=== PATIENT | female | born 1940 | race Caucasian/White ===

== ENCOUNTER 2017-05-14 08:44 | Emergency (ER) | payer MEDICARE, MEDICAID ==
[2017-05-14 08:52] VITALS: BP 120/52
--- NOTE | 2017-05-14 10:02 | ER Document Report ---
HPI - HPI Patient complains to provider of: implanted port accessed flushed and deaccessed Onset: Other - flush due not able to get to primary md today Pain Level: Denies Context: Patient was seen 2 day to access and de-access report on the left chest. Patient has the Port-A-Cath due to lung cancer and following up several spots. She does not take chemo at this time but she is being monitored for several spots that could develop. 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 Associated Symptoms: None Exacerbated by: Denies Relieved by: Denies Similar symptoms previously: Yes Recently seen / treated by doctor: Yes - ROS ROS below otherwise negative: Yes - CONSTITUTIONAL Constitutional: DENIES: Fever, Chills - EENT EENT: DENIES: Sore Throat, Ear Pain, Nasal Drainage-Clear, Nasal Drainage- Purulent, Congestion, Eye problems - NEURO Neurology: DENIES: Headache, Weakness, Vision blurred, Dizzinesss / Vertigo - CARDIOVASCULAR Cardiovascular: DENIES: Chest pain - RESPIRATORY Respiratory: DENIES: Trouble Breathing, Coughing - GASTROINTESTINAL Gastrointestinal: DENIES: Abdominal Pain, Nausea, Patient vomiting, Diarrhea, Constipation, Black / Bloody Stools - URINARY Urinary: DENIES: Dysuria, Urgency, Frequency - REPRODUCTIVE Reproductive: DENIES: :, Postmenopausal, Abnormal bleeding / discharge - MUSCULOSKELETAL Musculoskeletal: DENIES: Extremity pain, Back Pain, Neck Pain, Swelling - DERM Skin Color: Normal Skin Problems: None Past Medical History - General Information source: Patient - Social History Smoking Status: Former Smoker Cigarette use (# per day): No Chew tobacco use (# tins/day): No Smoking Education Provided: No Frequency of alcohol use: None Drug Abuse: None Lives with: Family - She lives with her and stepson Family History: Reviewed & Not Pertinent Patient has suicidal ideation: No Patient has homicidal ideation: No - Past Medical History Cardiac Medical History: Reports: Hx Hypertension Pulmonary Medical History: Reports: None EENT Medical History: Reports: None Neurological Medical History: Reports: None Endocrine Medical History: Reports: None Renal/ Medical History: Reports: None. Denies: Hx Peritoneal Dialysis Malignancy Medical History: Reports: Hx Lung Cancer, Hx Skin Cancer GI Medical History: Reports: None Musculoskeltal Medical History: Reports None Skin Medical History: Reports None Psychiatric Medical History: Reports: Hx Obsessive Compulsive Disorder Traumatic Medical History: Reports: None Infectious Medical History: Reports: None Past Surgical History: Reports: Other - Removal of squamous cell from arm removal of left lung Port-A-Cath insertio Vertical Provider Document - CONSTITUTIONAL Agree With Documented VS: Yes Exam Limitations: No Limitations General Appearance: WD/WN - INFECTION CONTROL TRAVEL OUTSIDE OF THE [place] IN LAST 30 DAYS: No - HEENT HEENT: Atraumatic, Normal ENT Exam, Normocephalic, PERRLA - NECK Neck: Normal Inspection, Supple - RESPIRATORY Respiratory: Other - No left long right lung clear O2 Sat by Pulse Oximetry: 98 - CARDIOVASCULAR Cardiovascular: Regular Rate, Regular Rhythm - GI/ABDOMEN Gastrointestinal: Abdomen Soft, Abdomen Non-Tender, No Organomegaly, Normal Bowel Sounds - MUSCULOSKELETAL/EXTREMETIES Musculoskeletal/Extremeties: MAEW, FROM, Non-Tender, No Edema - NEURO Level of Consciousness: Awake, Alert, Appropriate Motor/Sensory: No Motor Deficit - DERM Integumentary: Warm, Dry, No Rash Course - Re-evaluation Re-evalutation: 05/14/17 10:10 Port-A-Cath flushed as per protocol then DXS patient given instructions on care of Port-A-Cath. - Vital Signs Vital signs: Temp Pulse Resp BP Pulse Ox 97.6 F 64 16 120/52 L 98 05/14/17 08:51 05/14/17 08:51 05/14/17 08:51 05/14/17 08:51 05/14/17 08:51 Discharge - Discharge Clinical Impression: port-a-cath flush Condition: Stable Disposition: HOME, SELF-CARE Instructions: Family Physicians / Practices Additional Instructions: You were seen today for care of your Port-A-Cath. Your cath was accessed and flushed heparinized and de-accessed under sterile condition. Please keep this area clean and dry until the skin heals over. Please return to the ED or your primary doctor for any signs or symptoms of infection. FOLLOW-UP CARE: If you have been referred to a physician for follow-up care, call the physician s office for an appointment as you were instructed or within the next two days. If you experience worsening or a significant change in your symptoms, notify the physician immediately or return to the Emergency Department at any time for re-evaluation.
== END 2017-05-14 10:08 | disposition home or self-care (01) ==
LOC: ER 08:44
DX: Z45.2 Encounter for adjustment and management of vascular access device (principal); Z85.118 Personal history of other malignant neoplasm of bronchus and lung; Z85.828 Personal history of other malignant neoplasm of skin; Z87.891 Personal history of nicotine dependence; I10 Essential (primary) hypertension
CPT/HCPCS: 99283; J1642

== ENCOUNTER 2020-05-03 09:36 | Emergency (ER) | payer MEDICARE, MEDICAID ==
--- NOTE | 2020-05-03 10:25 | ER Document Report ---
ED Medical Screen (RME) - General Chief Complaint: Shortness Of Breath Stated Complaint: SHORT OF BREATH Time Seen by Provider: 05/03/20 10:19 Primary Care Provider: GENO SHAHID MD [Primary Care Provider] - Follow up as needed Mode of Arrival: Wheelchair Information source: Patient, Relative Notes: HPI; 80-year-old female past medical history significant for lung cancer with a left lobectomy currently on chemotherapy presents emergency room with sudden onset of shortness of breath on awakening this morning worse with exertion. Denies any chest pain. Denies any recent travel. No history of DVTs or PEs. PE: Alert and oriented x3. Lungs were clear to auscultation without rales, rhonchi, wheezes. Heart: Regular rate rhythm without murmurs, rubs, gallops. I have greeted and performed a rapid initial assessment of this patient. A comprehensive ED assessment and evaluation of the patient, analysis of test results and completion of the medical decision making process will be conducted by additional ED providers. I have specifically instructed the patient or family members with the patient to immediately return to any nursing staff should anything change in the patient's condition or with their chief complaint. TRAVEL OUTSIDE OF THE [place] IN LAST 30 DAYS: No - Related Data Allergies/Adverse Reactions: amlodipine [From [employer]] Allergy (Verified 05/14/17 08:49) duloxetine Allergy (Verified 05/03/20 10:19) Past Medical History - Past Medical History Cardiac Medical History: Reports: Hx Hypertension Renal/ Medical History: Denies: Hx Peritoneal Dialysis Malignancy Medical History: Reports: Hx Lung Cancer, Hx Skin Cancer Psychiatric Medical History: Reports: Hx Obsessive Compulsive Disorder Past Surgical History: Reports: Other - Removal of squamous cell from arm removal of left lung Port-A-Cath insertio Physical Exam - Vital signs Vitals: Temp Pulse Resp BP Pulse Ox 98.4 F 93 20 135/96 H 97 05/03/20 09:55 05/03/20 09:55 05/03/20 09:55 05/03/20 09:55 05/03/20 09:55 Course - Vital Signs Vital signs: Temp Pulse Resp BP Pulse Ox 98.4 F 93 20 135/96 H 97 05/03/20 09:55 05/03/20 09:55 05/03/20 09:55 05/03/20 09:55 05/03/20 09:55 Doctor's Discharge - Discharge Referrals: GENO SHAHID MD [Primary Care Provider] - Follow up as needed
--- NOTE | 2020-05-03 11:17 | RADIOLOGY REPORT (SQ) ---
EXAM DESCRIPTION: CHEST SINGLE VIEW IMAGES COMPLETED DATE/TIME: 05/03/2020 10:52 am REASON FOR STUDY: dyspnea COMPARISON: None. EXAM PARAMETERS: NUMBER OF VIEWS: One view. TECHNIQUE: An AP view of the chest was obtained. RADIATION DOSE: NA LIMITATIONS: None. FINDINGS: LUNGS AND PLEURA: Abrupt truncation of the left main bronchus, surgical clips that project above the left hilum, and opacification of the left hemithorax associated with ipsilateral mediastin al shift. There is right apical pleuroparenchymal thickening. There is no consolidation or pleural effusion on the right. MEDIASTINUM AND HILAR STRUCTURES: As above. HEART AND VASCULAR STRUCTURES: The cardiac silhouette is obscured. BONES: Subacute fracture of the proximal left humerus. HARDWARE: None in the chest. OTHER: No other finding. IMPRESSION: Abrupt truncation of the left main bronchus, surgical clips that project above the left hilum, and opacification of the left hemithorax associated with ipsilateral mediastinal shift. Does the patient have a history of prior left pneumonectomy? Otherwise these findings could represent an obstruction of the left main bronchus associated with lobar collapse and pleural fluid. TECHNICAL DOCUMENTATION: JOB ID: [id number] 2010 [employer]- All Rights Reserved Reading location - IP/workstation name: [email or web address]
[2020-05-03 12:21] LABS: HEMATOCRIT 29.7 % (36.0-47.0); HEMOGLOBIN 9.8 g/dL (12.0-15.5); MEAN CORPUSCULAR HEMOGLOBIN 28.5 pg (27.0-33.4); MEAN CORPUSCULAR HGB CONC 33.1 g/dL (32.0-36.0); MEAN CORPUSCULAR VOLUME 86 fl (80-97); PLATELET COUNT 133 10^3/uL (150-450); RED BLOOD COUNT 3.44 10^6/uL (3.72-5.28); RED CELL DISTRIBUTION WIDTH 21.9 % (11.5-14.0); WHITE BLOOD COUNT 2.9 10^3/uL (4.0-10.5)
[2020-05-03 12:23] LABS: APPEARANCE,URINE SLIGHTLY-CLOUDY; BILIRUBIN,URINE NEGATIVE (NEGATIVE); COLOR,URINE YELLOW; GLUCOSE, URINE NEGATIVE (NEGATIVE); KETONES,URINE NEGATIVE (NEGATIVE); LEUKOCYTE ESTERASE,URINE TRACE (NEGATIVE); NITRITE,URINE NEGATIVE (NEGATIVE); PROTEIN,URINE 100 mg/dL (NEGATIVE); URINE SPECIFIC GRAVITY 1.025; UROBILINOGEN,URINE NEGATIVE mg/dL (<2.0)
[2020-05-03 12:36] LABS: ALBUMIN 3.6 g/dL (3.5-5.0); ALKALINE PHOSPHATASE 59 U/L (38-126); ANION GAP 9 (5-19); ASPARTATE AMINO TRANSFERASE 15 U/L (14-36); BILIRUBIN,DIRECT 0.2 mg/dL (0.0-0.4); BILIRUBIN,TOTAL 0.5 mg/dL (0.2-1.3); BLOOD UREA NITROGEN 25 mg/dL (7-20); CALCIUM 7.4 mg/dL (8.4-10.2); CARBON DIOXIDE 19 mmol/L (22-30); CHLORIDE 111 mmol/L (98-107); GLUCOSE 96 mg/dL (75-110); POTASSIUM 5.2 mmol/L (3.6-5.0); TOTAL PROTEIN 6.5 g/dL (6.3-8.2)
[2020-05-03 12:47] LABS: ABSOLUTE LYMPHOCYTES# (MANUAL) 1.5 10^3/uL (0.5-4.7); ABSOLUTE MONOCYTES # (MANUAL) 0.1 10^3/uL (0.1-1.4); BASOPHILS % (MANUAL) 0 % (0-2); EOSINOPHILS % (MANUAL) 0 % (0-6); LYMPHOCYTES % (MANUAL) 49 % (13-45); MONOCYTES % (MANUAL) 5 % (3-13); SEGMENTED NEUTROPHILS % (MAN) 43 % (42-78); TOTAL CELLS COUNTED 100
[2020-05-03 12:48] LABS: ANISOCYTOSIS 3+; OVALOCYTES 1+; POIKILOCYTOSIS 1+
[2020-05-03 12:49] LABS: PLATELET CLUMPS PRESENT; PLATELET COMMENT DECREASED; POLYCHROMASIA SLIGHT; TEAR DROP CELLS SLIGHT
[2020-05-03 12:50] LABS: PROMYELOCYTES % (MANUAL) 1 % (0)
[2020-05-03] MEDS ORDERED: NORMAL SALINE 1000 ML 1,000 ML IV ONE (15:34)
--- NOTE | 2020-05-03 15:57 | ER Document Report ---
Entered by ANGELA RAMOS SCRIBE 05/03/20 1519 Acting as scribe for:OFELIA SERRA MD ED General - General Mode of Arrival: Wheelchair Information source: Patient, Relative TRAVEL OUTSIDE OF THE [place] IN LAST 30 DAYS: No <OFELIA SERRA - Last Filed: 05/03/20 16:43> <KACIE PATTON - Last Filed: 05/03/20 19:13> - General Chief Complaint: Shortness Of Breath Stated Complaint: SHORT OF BREATH Time Seen by Provider: 05/03/20 10:19 Primary Care Provider: GEON SHAHID MD [Primary Care Provider] - Follow up as needed Notes: This 80 year old female patient with a history of lung cancer s/p left lobectomy in 2016, currently receiving chemotherapy presents to the ED today with complaints of waking up short of breath this morning. Patient states that she felt like she couldn't get a breath in and would become extremely short of breath with exertion; she denies shortness of breath at rest. at bedside reports that the patient was supposed to go to chemotherapy today, but was too short of breath, so they cancelled the appointment. They spoke with the [facility] oncologist, Dr. Montes, and was advised to come to the ED for evaluation. She is not dependent on home O2. Denies fever, chills, cough, chest pain, abdominal pain, nausea, or vomiting. Denies history of PE. mentions that the patient had diarrhea last week due to one of her chemotherapy medications changing. No diarrhea at this time. (OFELIA SERRA) - Related Data Allergies/Adverse Reactions: amlodipine [From [facility]] Allergy (Verified 05/14/17 08:49) duloxetine Allergy (Verified 05/03/20 10:19) Past Medical History - General Information source: Patient, Relative - Social History Smoking Status: Never Smoker Cigarette use (# per day): No Chew tobacco use (# tins/day): No Smoking Education Provided: No Lives with: Spouse/Significant other Family History: Reviewed & Not Pertinent Patient has suicidal ideation: No Patient has homicidal ideation: No - Past Medical History Cardiac Medical History: Reports: Hx Hypertension Malignancy Medical History: Reports: Hx Lung Cancer - s/p left lobectomy in 2016, Hx Skin Cancer Psychiatric Medical History: Reports: Hx Obsessive Compulsive Disorder Past Surgical History: Reports: Other - Removal of squamous cell from arm removal of left lung Port-A-Cath insertio <OFELIA SERRA - Last Filed: 05/03/20 16:43> Review of Systems - Review of Systems Constitutional: See HPI. denies: Chills, Fever EENT: No symptoms reported Cardiovascular: See HPI. denies: Chest pain Respiratory: See HPI, Short of breath. denies: Cough, Sputum Gastrointestinal: See HPI, Diarrhea. denies: Abdominal pain, Nausea, Vomiting Genitourinary: No symptoms reported Female Genitourinary: No symptoms reported Musculoskeletal: No symptoms reported Skin: No symptoms reported Hematologic/Lymphatic: No symptoms reported Neurological/Psychological: No symptoms reported -: Yes All other systems reviewed and negative <OFELIA SERRA - Last Filed: 05/03/20 16:43> Physical Exam - Vital signs Interpretation: Normal - General General appearance: Alert In distress: None - HEENT Head: Normocephalic, Atraumatic Eyes: Normal Pupils: PERRL - Respiratory Respiratory status: No respiratory distress, Other - Patient has O2 sats of 99- 100% on RA at rest Chest status: Nontender Breath sounds: Decreased air movement - Diminished breath sounds on the left due to left lobectomy, Other - Breath sounds in the right lung are clear to auscultation Chest palpation: Normal - Cardiovascular Rhythm: Regular Heart sounds: Normal auscultation Murmur: No Friction rub: No Gallop: None auscultated - Abdominal Inspection: Normal Distension: No distension Bowel sounds: Normal Tenderness: Nontender - Abdomen soft Organomegaly: No organomegaly - Back Back: Normal, Nontender - Extremities General upper extremity: Normal inspection General lower extremity: Normal inspection. No: Edema - Neurological Neuro grossly intact: Yes Cognition: Normal Orientation: AAOx4 Luis Coma Scale Eye Opening: Spontaneous Luis Coma Scale Verbal: Oriented Russell Coma Scale Motor: Obeys Commands Luis Coma Scale Total: 15 Speech: Normal Motor strength normal: LUE, RUE, LLE, RLE Sensory: Normal - Psychological Associated symptoms: Normal affect, Normal mood - Skin Skin Temperature: Warm Skin Moisture: Dry Skin Color: Pale <SERRAOFELIA ALCANTARA Jeffery - Last Filed: 05/03/20 16:43> - Vital signs Vitals: Temp Pulse Resp BP Pulse Ox 98.4 F 93 20 135/96 H 97 05/03/20 09:55 05/03/20 09:55 05/03/20 09:55 05/03/20 09:55 05/03/20 09:55 Course - Laboratory Result Diagrams: 05/03/20 11:50 05/03/20 11:50 - Transfer of Care Care transferred to following provider: Care transferred to Kacie Palencia MD. <OFELIA SERRA - Last Filed: 05/03/20 16:43> - Laboratory Result Diagrams: 05/03/20 11:50 05/03/20 11:50 <KACIE PATTON - Last Filed: 05/03/20 19:13> - Re-evaluation Re-evalutation: 05/03/20 16:27 Address patient's not showing any respiratory distress with sats of 99%. Per history patient reports that if she does minimal exertion such as walk across the floor that she develops shortness of breath dyspnea on exertion. Denies any cough fever chills there has been diarrhea. Patient is a chemotherapy patient who missed her chemotherapy today due to her overall generalized shortness of breath problem which she awakened with today. (OFELIA SERRA) - Vital Signs Vital signs: Temp Pulse Resp BP Pulse Ox 98.4 F 93 19 127/60 H 97 05/03/20 09:55 05/03/20 09:55 05/03/20 14:01 05/03/20 14:01 05/03/20 14:01 05/03/20 16:28 Vital signs as above patient is afebrile pulse ox is 97% on room air with a pulse of 93 and respiratory rate of 19. (OFELIA SERRA) - Laboratory Laboratory results interpreted by me: 05/03/20 05/03/20 05/03/20 11:50 11:50 11:50 WBC 2.9 L RBC 3.44 L Hgb 9.8 L Hct 29.7 L RDW 21.9 H Plt Count 133 L Lymphocytes % (Manual) 49 H Promyelocytes % 1 H Abs Neuts (Manual) 1.3 L Potassium 5.2 H Chloride 111 H Carbon Dioxide 19 L BUN 25 H Creatinine 1.44 H Est GFR ( Amer) 42 L Est GFR (MDRD) Non-Af 35 L Calcium 7.4 L Creatine Kinase < 20 L Urine Protein Ur Leukocyte Esterase Urine Ascorbic Acid 05/03/20 12:00 WBC RBC Hgb Hct RDW Plt Count Lymphocytes % (Manual) Promyelocytes % Abs Neuts (Manual) Potassium Chloride Carbon Dioxide BUN Creatinine Est GFR ( Amer) Est GFR (MDRD) Non-Af Calcium Creatine Kinase Urine Protein 100 H Ur Leukocyte Esterase TRACE H Urine Ascorbic Acid 20 H 05/03/20 16:28 Patient with a low white blood cell count 2.9 secondary to chemotherapy. Patient has trace leukocyte esterase on urine. 05/03/20 16:29 Patient appears dehydrated based on her laboratory survey showing elevated BUN/creatinine. Patient reports that she has been having diarrhea. Patient is bolused 1 L normal saline. (OFELIA SERRA) - EKG Interpretation by Me Additional EKG results interpreted by me: 05/03/20 16:31 Twelve-lead EKG shows normal sinus rhythm rate of 72 left ventricular hypertrophy noted by voltage criteria apparent old inferior VT. TN interval QRS interval and QT intervals within normal range left axis deviation noted. No evidence for an acute STEMI. (OFELIA SERRA) Discharge <OFELIA SERRA - Last Filed: 05/03/20 16:43> <KACIE PATTON - Last Filed: 05/03/20 19:13> - Discharge Clinical Impression: Shortness of breath Lung cancer Qualifiers: Laterality: unspecified laterality Lung location: unspecified part of lung Qualified Code(s): C34.90 - Malignant neoplasm of unspecified part of unspecified bronchus or lung Pulmonary embolism Qualifiers: Pulmonary embolism type: unspecified Chronicity: acute Acute cor pulmonale presence: without acute cor pulmonale Qualified Code(s): I26.99 - Other pulmonary embolism without acute cor pulmonale Condition: Stable Disposition: HOME, SELF-CARE Instructions: Dyspnea, Nonspecific ([facility]) Additional Instructions: Please take your medication as prescribed. Please do not take Advil when you are taking this medicine. Please follow-up with Dr. Montes within 1 week. Return to the ER for any worsening shortness of breath or other symptoms. Prescriptions: Apixaban [Eliquis 5 mg Tablet] 10 mg PO BID 7 Days #28 tablet Apixaban [Eliquis 5 mg Tablet] 5 mg PO BID 23 Days #46 tablet Referrals: GNEO SHAHID MD [Primary Care Provider] - Follow up as needed I personally performed the services described in the documentation, reviewed and edited the documentation which was dictated to the scribe in my presence, and it accurately records my words and actions.
--- NOTE | 2020-05-03 16:38 | EKG REPORT ---
SEVERITY:- ABNORMAL ECG - SINUS RHYTHM CONSIDER LEFT VENTRICULAR HYPERTROPHY PROBABLE INFERIOR INFARCT, OLD LATERAL LEADS ARE ALSO INVOLVED : Confirmed by: Viet Long 03-May-2020 16:37:00
--- NOTE | 2020-05-03 17:20 | RADIOLOGY REPORT (SQ) ---
EXAM DESCRIPTION: CTA CHEST IMAGES COMPLETED DATE/TIME: 05/03/2020 4:53 pm REASON FOR STUDY: sobr/ left lobectomy 2016 COMPARISON: None. TECHNIQUE: CT scan of the chest performed using helical scanning technique with dynamic intravenous contrast injection. Images reviewed with lung, soft tissue and bone windows. Reconstructed coronal and sagittal MPR images reviewed. Additional 3 dimensional post-processing performed to develop Maximal Intensity Projection images ([place] P). All images stored on PACS. All CT scanners at this facility use dose modulation, iterative reconstruction, and/or weight based d osing when appropriate to reduce radiation dose to as low as reasonably achievable (ALARA). [facility]: Dose Right [facility]: CareDose [facility]: Dose Right [facility]: Teradose 4D [facility]: [employer] CONTRAST TYPE AND DOSE: contrast/concentration: Isovue 350.00 mmol/ml; Total Contrast Delivered: 75. 0 ml; Total Saline Delivered: 49.7 ml Contrast bolus optimized for the pulmonary arteries. Not diagnostic for the aorta. RENAL FUNCTION: Creatinine- 1.44 BUN=25 RADIATION DOSE: CT Rad equipment meets quality standard of care and radiation dose reduction techniq ues were employed. CTDIvol: 6.6 - 14.3 mGy. DLP: 491 mGy-cm. . LIMITATIONS: None. FINDINGS: LUNGS AND PLEURA: Prior history of left pneumonectomy with ipsilateral shift of the cardi omediastinal structures to the left of the midline. Compensatory hypertrophy of the right lung. Mil d scar in the right apex - upper lobe. AORTA AND GREAT VESSELS: Atherosclerotic changes involving the thoracic aorta. No aneurysm. Contra st bolus not optimized for the aorta. HEART: No pericardial effusion. No significant coronary artery calcifications. PULMONARY ARTERIES: Low attenuated fairly defects few the distal right pulmonary artery and segmenta l pulmonary arterial branches on the right. These findings suggest acute pulmonary emboli. No evide nce for saddle pulmonary embolus. HILAR AND MEDIASTINAL STRUCTURES: No identified masses or abnormal nodes. HARDWARE: Light [id number] catheter. UPPER ABDOMEN: A slightly enhancing 1.6 cm lesion in the right hepatic lobe, axial image 103. Large lobulated low attenuated lesion(s) with an associated calcification in the left kidney. Limited exa m. THYROID AND OTHER SOFT TISSUES: Heterogenous appearance to the thyroid gland with nodules present. BONES: No acute or significant finding. 3D MIPS: Confirm above findings. OTHER: No other significant finding. IMPRESSION: 1. Low attenuated filling defects are identified in the distal right pulmonary artery a nd segmental pulmonary arterial branches on the right. Findings suggest acute pulmonary emboli. (The results of this examination were discussed with emergency department provider on 05/03/2020 at 17:10 hours). 2. Prior left pneumonectomy. 3. Slightly enhancing right hepatic lobe lesion. Correlation suggested and correlation with lab frank ues. 4. Large lobulated low attenuated left renal lesion(s) with a small associated calcification raise t he question of possible neoplasm, complex cysts. Correlation suggested. COMMENT: Quality ID # [id number]: Final reports with documentation of one or more dose reduction techniques (e.g., Automated exposure control, adjustment of the mA and/or kV according to patient size, use of iterative reconstruction technique) TECHNICAL DOCUMENTATION: JOB ID: [id number] 2010 [employer]- All Rights Reserved Reading location - IP/workstation name: [email or web address]
[2020-05-03 18:35] LABS: INTERNATIONAL RATION (INR) 1.12; PROTHROMBIN TIME 14.6 SEC (11.4-15.4)
[2020-05-03] MEDS ORDERED: APIXABAN 5 MG TABLET PO ONE (18:35)
--- NOTE | 2020-05-03 19:00 | Progress Note ---
Provider Note Provider Note: Evaluated patient in the ED. She has acute PE diagnosed on CTA chest. She has remained hemodynamically stable throughout her stay in the ED. She ambulated without evidence of hypoxemia on RA. She has no chest pain or SOB at this time. Due to history of CKD, I have recommended starting treatment with Eliquis 10 mg BID x7 days followed by 5 mg BID indefinitely thereafter. I have also strongly advised the patient to stop taking all NSAIDs (she takes Aleve for pain control), and start Tylenol instead. I believe she is safe for discharge home with close outpatient follow up with oncology for ongoing management. Recommendations were shared with ED attending, Dr. Lanier, as well as Oncology, Dr. Montes.
[2020-05-03 19:27] VITALS: BP 136/75
--- NOTE | 2020-05-03 20:31 | ER Document Report ---
Doctor's Note Notes: 05/03/20 20:28 Patient was signed out to me. She is an 80-year-old female with lung cancer status post lobectomy. Patient states that she began having shortness of breath today. It was sudden. Her partner states that she has been having some shortness of breath for the past couple of days but today was much worse. She is describing exertional dyspnea. She gets very short of breath walking to the bathroom. This is new. Patient last had chemo on Sunday. She was due for chemo today but was short of breath and came to the ER. On exam, patient is on room air. She is 99%. She is in no acute distress. Patient is breathing easy on room air. Heart is regular. Skin color is normal. CT scan showed a pulmonary emboli. It also showed renal and hepatic possible lesions. I informed the patient and her partner about this and they were already aware. Patient was ambulated and pulse ox remained 92% and higher. I discussed with Dr. Montes, her oncologist. She states that patient can be placed on Lovenox if her creatinine clearance allows it. However, her creatinine clearance was too low for Lovenox. I did discuss with Dr. Craig, the hospitalist, for admission. Dr. Craig recommended we start her on Eliquis. She evaluated her in the ED. She did not believe that patient needed to be admitted as she is ambulating without a drop in her O2 sats and is in no acute distress. She recommended that patient be discharged on Eliquis. Patient will follow up with Dr. Montes. Patient and her partner are in agreement. She will return for any worsening symptoms.
[2020-05-04 12:38] LABS: PATH REVIEW PATHOLOGIST REVIEWED
== END 2020-05-03 19:46 | disposition home or self-care (01) ==
LOC: ER 09:36
DX: C34.90 Malignant neoplasm of unspecified part of unspecified bronchus or lung (principal); I26.99 Other pulmonary embolism without acute cor pulmonale; R06.02 Shortness of breath; Z98.890 Other specified postprocedural states; Z79.899 Other long term (current) drug therapy; R19.7 Diarrhea, unspecified; I10 Essential (primary) hypertension
CPT/HCPCS: 93005; 99285; 96360; 96361; 36415; 82550; 85025; 85610; 80053; 81001; 84484; 71045; 71275; 93010; J7030; A9270; J1642

== ENCOUNTER → 2020-06-08 | Outpatient (CLI) | payer MEDICARE, MEDICAID ==
--- NOTE | 2020-06-08 15:25 | RADIOLOGY REPORT (SQ) ---
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 Images reviewed with lung, soft tissue and bone windows. Reconstructed coronal and sagittal MPR images reviewed. All images stored on PACS. CT scan of the abdomen and pelvis performed without intravenous contrast and withoutoral contrast usi ng helical scanning technique with dynamic intravenous contrast injection. Images reviewed with lung , soft tissue and bone windows. Reconstructed coronal and sagittal MPR images reviewed. All images stored on PACS. All CT scanners at this facility use dose modulation, iterative reconstruction, and/or weight based d osing when appropriate to reduce radiation dose to as low as reasonably achievable (ALARA). [facility]: Dose Right [facility]: CareDose [facility]: Dose Right [facility]: Teradose 4D [facility]: [employer] RADIATION DOSE: CT Rad equipment meets quality standard of care and radiation dose reduction techniq ues were employed. CTDIvol: 4.4 - 4.5 mGy. DLP: 356 mGy-cm. mGy. LIMITATIONS: No technical limitations. FINDINGS: CHEST: AXILLAE: No adenopathy. CHEST WALL: No masses. No subcutaneous air. LUNGS: Stable left pneumonectomy postsurgical changes with leftward shift of the mediastinum and a sm all amount of fluid within the remaining cavity. Hyper aeration of the right lobes with right upper lobe pleural/parenchymal scarring, unchanged. No new focal consolidation. No pleural effusion. No pneumothorax. PLEURA: No calcifications. No acute findings. THYROID: No masses or significant asymmetry. HILAR AND MEDIASTINAL STRUCTURES: No identified masses or abnormal nodes. AORTA AND GREAT VESSELS: Ectatic appearing ascending aorta. No acute findings. HEART: No pericardial effusion. HARDWARE AND LIFELINES: Left chest wall Port-A-Cath terminates at the cavoatrial junction. BONES: No significant finding. Incidental note is made of a T8 intraosseous hemangioma. OTHER: No other significant finding. ABDOMEN AND PELVIS: LIVER: Stable, again noting right hepatic lobe calcified granuloma, right hepatic lobe subcapsular hy poattenuating focus. Examination limited by the absence of intravenous contrast material. SPLEEN: Normal size. No focal lesions. PANCREAS: No masses. No significant calcifications. No adjacent inflammation or peripancreatic flui d collections. Pancreatic duct not dilated. GALLBLADDER: No identified stones by CT criteria. No inflammatory changes to suggest cholecystitis. ADRENAL GLANDS: No significant masses or asymmetry. RIGHT KIDNEY AND URETER: No solid masses. Assessment limited by lack of IV contrast. No significant calcifications. No hydronephrosis or hydroureter. LEFT KIDNEY AND URETER: Assessment limited by lack of IV contrast. Abnormal appearance of the superi or pole the left kidney does not appear to be significantly changed in the study interval. A single coarse parenchymal calcification is demonstrated. No hydronephrosis or hydroureter. AORTA AND VESSELS: No aneurysm. RETROPERITONEUM: No retroperitoneal lymphadenopathy or hemorrhage. APPENDIX: Normal. LARGE AND SMALL BOWEL: No dilatation. No masses. No wall thickening. Few scattered colonic diverti cula are demonstrated. ABDOMINAL WALL: No hernia or masses. PERITONEAL CAVITY: No free air. No free fluid. No peritoneal implants or masses. PELVIS: No mass or free fluid. The bladder is decompressed. The uterus and ovaries are normal for m odality. BONES: Levoconvex lateral curvature. No acute findings. OTHER: No other significant finding. IMPRESSION: Stable CT appearance of the chest demonstrating left pneumonectomy with leftward mediast inal shift. No acute findings. Examination limited in the absence of intravenous contrast. Abnormal appearance of the left kidney n ot appear to be significantly changed in the study interval. No acute intra-abdominal abnormalities. TECHNICAL DOCUMENTATION: JOB ID: [id number] Quality ID # [id number]: Final reports with documentation of one or more dose reduction techniques (e.g., Au tomated exposure control, adjustment of the mA and/or kV according to patient size, use of iterative reconstruction technique) 2010 [employer]- All Rights Reserved Reading location - IP/workstation name: [email or web address]
== END ==
LOC: RAD 13:24
PROVIDERS: ATTEND Internal Medicine Hematology & Oncology
DX: C34.92 Malignant neoplasm of unspecified part of left bronchus or lung (principal)
CPT/HCPCS: 71250; 74176; 82565

== ENCOUNTER → 2020-06-21 | Outpatient (CLI) | payer MEDICARE, MEDICAID ==
--- NOTE | 2020-06-21 12:15 | RADIOLOGY REPORT (SQ) ---
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 TECHNIQUE: Multiplanar imaging includes non-contrasted T1, T2, FLAIR, and diffusion with ADC map seq uences. Images stored on PACS. LIMITATIONS: None. FINDINGS: ANATOMY: No anomalies. Normal vascular flow voids. Pituitary fossa normal. CSF SPACES: Normal in size and contour. No hemorrhage. CEREBRUM: Mild cortical atrophy. Scattered small areas of increased white matter signal on FLAIR juno ging. No evidence of hemorrhage, mass, or extraaxial fluid collection. POSTERIOR FOSSA: No signal alteration. No hemorrhage. No edema, masses or mass effect. Internal alireza tory canals, cerebello-pontine angles, mastoids normal. DIFFUSION IMAGING: Negative for acute or sub-acute infarction. ORBITS: No masses. Globes normal. PARANASAL SINUSES: No fluid levels. Mucosa normal. OTHER: No other significant finding. IMPRESSION: Mild involutional changes with mild chronic microvascular ischemia. No acute intracrani al imaging findings. No evidence of metastatic disease in the brain. EVIDENCE OF ACUTE STROKE: NO. TECHNICAL DOCUMENTATION: JOB ID: [id number] 2010 [employer]- All Rights Reserved Reading location - IP/workstation name: [email or web address]
== END ==
LOC: RAD 09:14
PROVIDERS: ATTEND Internal Medicine Hematology & Oncology
DX: C34.92 Malignant neoplasm of unspecified part of left bronchus or lung (principal); C79.51 Secondary malignant neoplasm of bone
CPT/HCPCS: 70551; 82565